=== PATIENT | female | born 1970 | race Caucasian/White ===

== ENCOUNTER → 2017-03-22 | Day surgery (SDC) | payer SELFPAY ==
[2017-03-18 16:55] VITALS: BMI 26.4
[2017-03-19 17:06] LABS: ANION GAP 9 (8-16); CO2 24 mmol/L (22-28); CREATININE 0.7 mg/dl (0.6-1.3); GLUCOSE,RANDOM 97 mg/dl (74-106)
[~2017-03-22] MED LIST: DEXAMETHASONE SOD PHOSPHATE 4 MG/1 ML VIAL ONE; HALOPERIDOL LACTATE 5 MG/ML ONE; HYDROmorphone HCL/PF 1 MG/ML VIAL (FOR PYXIS CHARGING ONLY) ONE; LACTATED RINGERS SOLUTION 1,000 ML IV SCH; MIDAZOLAM HCL 2 MG/2 ML SINGLE DOSE VIAL ONE; ONDANSETRON 4 MG/2 ML VIAL IVPB PRN; ONDANSETRON 4 MG/2 ML VIAL IVPUSH PRN; ONDANSETRON 4 MG/2 ML VIAL ONE; PROMETHAZINE HCL 25 MG/1 ML VIAL IVPUSH PRN; PROPOFOL 20 ML ONE; SUCCINYLCHOLINE CHLORIDE 200 MG/10 ML VIAL ONE; ceFAZolin SODIUM 1 GM VIAL ONE; ePHEDrine SULFATE 50 MG/1 ML AMPULE ONE; oxyCODONE HCL 5 MG TABLET ONE; oxyCODONE HCL 5 MG TABLET PO PRN
[2017-03-22 16:27] VITALS: TEMP 98
[2017-03-22 16:52] VITALS: BP 110/70; PULSE 92
--- NOTE | 2017-03-25 20:52 | OP ---
DATE OF OPERATION: 03/22/2017 TITLE OF PROCEDURE: Bilateral reduction mammoplasty. PREOPERATIVE DIAGNOSIS: Bilateral macromastia. POSTOPERATIVE DIAGNOSIS: Bilateral macromastia. ATTENDING SURGEON: Kei Kingston M.D. ASSISTANTS: None. ANESTHESIA: General endotracheal anesthesia. INDICATION: Patient is marked in the holding area, awake and aware of all incisions, resulting scars, and inverted T pattern bilateral breast reduction is planned using an inferior pedicle. Nipples are sited at 24 cm from sternal notch bilaterally. It is noted that the right breast is significantly larger than the left breast. The patient is counseled on all the risks, benefits, and alternatives to the procedure, which she understands and agrees to proceed. She is given sequential compression devices and FROYLAN stockings. DESCRIPTION OF PROCEDURE: She is brought to the operating room, placed in a supine position. She is given sequential compression devices and FROYLAN stockings. She is brought to the operating room, placed in a supine position. 2 g of Ancef are given. Madsen catheter is placed, which is removed at the end of the procedure. Position is carefully checked by surgical and anesthesia teams. She is prepped and draped in standard surgical fashion. A timeout is called. Patient, procedure, incision sites are verified. The procedure is as follows. The markings are reassured with surgical marker. 45-mm areolar cookie cutters are used to trace the areolas. 10 cm inferiorly based pedicle is marked. Attention is first directed toward the larger right breast where the breast is placed under tourniquet and pedicle is de-epithelialized with the exception of the nipple-areolar complex. Incisions are then made along the resection pattern and skin flaps are developed laterally, superiorly, and medially. The pedicle is then developed by resecting tissue between the skin flaps and the marked de-epithelialized pedicle, leaving a robust fibroglandular pedicle for the nipple areola entirely to the chest wall. It was the patient's request to remain a full D cup which was honored. The resection weight on the right side is 1271 g, which still left an ample size breast. Hemostasis is meticulously achieved, and the skin is tailor tacked, [place]. Attention is then directed toward the contralateral side. Mirror image procedure is performed on the contralateral side; however, this side being significantly smaller yielded a resection weight of 972 g. Patient is brought to a seated upright position with the skin tailor tacked and symmetry of size and shape is found to be good. Patient returned to a supine position where the breasts were copiously irrigated with normal saline, and a meticulous hemostasis is performed. Size 10 flat KAMLESH drains are brought out to the lateral extent of the incisions. The inverted T point of the closure is closed with a half buried mattress 2-0 nylon suture bilaterally. The vertical and horizontal limbs are closed with a series of interrupted buried deep dermal 3-0 Monocryl suture followed by running subcuticular 3-0 Monocryl suture. The nipple areolas with the patient in a seated position are then marked for externalization 23 cm from the sternal notch bilaterally; using a 45-mm cookie cutter, the removal of circular pattern of skin and fat is performed. The nipples are externalized and are inset into the keyhole pattern. There is good bright red bleeding from the dermal edges of the nipple with good nipple color and reactivity . The inset is performed with a series of buried deep dermal 3-0 Monocryl suture followed by a running subcuticular 4-0 Monocryl suture. Several 5-0 nylon sutures are used to align skin edges. The wounds are dressed with Steri-Strips. The drains are dressed with 4x4 gauze and Tegaderm. Surgical bra is applied. Patient is awoken from anesthesia, transferred to recovery without complications. Please note that the Madsen catheters were removed at the end of the operation. Elias [id number]
--- NOTE | 2017-03-27 13:31 | PATH ---
Surgical Pathology Report Patient Name: DEEPALI WILBURN [facility]. Rec. #: [id number] /Age/Gender: 1970 (Age: 46) / F Account: [id number] Location[facility] Taken: 03/22/2017 Received: 03/22/2017 Reported: 03/27/2017 Physicians: Kei Kingston Specimen(s) Received A: RIGHT BREAST SKIN AND TISSUE B: LEFT BREAST SKIN AND TISSUE Clinical History Cosmetic Final Diagnosis A. RIGHT BREAST, REDUCTION MAMMOPLASTY: BENIGN BREAST TISSUE WITH FIBROCYSTIC CHANGES INCLUDING STROMAL FIBROSIS, DUCTAL DILATATION, AND CYSTIC APOCRINE METAPLASIA. UNREMARKABLE SKIN PRESENT. B. LEFT BREAST, REDUCTION MAMMOPLASTY: BENIGN BREAST TISSUE WITH FIBROCYSTIC CHANGES INCLUDING STROMAL FIBROSIS, DUCTAL DILATATION, AND CYSTIC APOCRINE METAPLASIA. CHANGES CONSISTENT WITH PRIOR BIOPSY SITE PRESENT. UNREMARKABLE SKIN PRESENT. Electronically Signed Nikolas Rahman M.D. Gross Description A. Received in formalin labeled "right breast skin and tissue," is a 1353 g, 25.5 x 14.0 x 8.0 cm aggregate of multiple irregular, unoriented portions of fibroadipose tissue and ellis, unremarkable skin. Sectioning reveals multiple foci of dense, white, focally firm fibrocystic tissue with dilated ducts. No definitive masses are identified. Fresh Work Wrapper Layer sections are submitted in 7 cassettes. B. Received in formalin labeled "left breast skin and tissue," is a 1026 g, 22.0 x 20.0 x 7.0 cm aggregate of multiple irregular, unoriented portions of fibroadipose tissue and ellis, unremarkable skin. Sectioning reveals a focus of hemorrhage, possibly consistent with a previous biopsy site. The remaining breast parenchyma displays multiple foci of dense, white, focally firm fibrous tissue. Fresh Work Wrapper Layer sections are submitted in 5 cassettes with possible previous biopsy site in cassettes 1-2. /03/26/2017 saudi03/26/2017
== END | disposition home or self-care (01) ==
LOC: FASU 06:35
PROVIDERS: ATTEND Plastic Surgery
PROC: 0HBV0ZZ Excision of Bilateral Breast, Open Approach (ICD-10-PCS; principal; 2017-03-22 08:40)
DX: N62 Hypertrophy of breast (principal)
CPT/HCPCS: 36415; 80048; 84703; 88305-TC; 94760